=== PATIENT | female | born 1960 | race Caucasian/White ===

== ENCOUNTER 2020-08-30 11:12 | Emergency (ER) | payer OTHER ==
[2020-08-30] MEDS ORDERED: Sodium Chloride 0.9% 1000 ML 1,000 ML IV STA (11:36)
[2020-08-30] MEDS ORDERED: Sodium Chloride 0.9% 1000 ML 1,000 ML ONE (11:40)
--- NOTE | 2020-08-30 11:50 | ERPHSYRPT ---
- History of Present Illness Time Seen by Provider: 08/30/20 11:30 Exam Limitations: no limitations Patient Subjective Stated Complaint: Pt states "I went to [facility] yesterday and I was told I had salmonilla. My is at [facility] with the same thing." Triage Nursing Assessment: Pt presented alert and oriented X 3, skin pwd Pt ambulates with an upright steady gait, able to sepak in clear full sentences pt in no apparent respiratory distress. Physician History: Patient is a 60-year-old female presents to our ED as a referral from [facility]. Patient was at [facility] yesterday. She was evaluated for nausea vomiting and diarrhea at that time. A stool sample was obtained. The results yielded Salmonella. Patient was notified of the findings today. She was then advised to come to the ER for treatment of possible dehydration as she explained to the [facility] that she was still having nausea vomiting and diarrhea. Patient stated her mouth was dry. Patient stated she felt weak. Patient's weakness is generalized. No focal or lateralizing symptoms. No numbness or tingling. Patient's has similar symptoms. believes that they may have contracted Salmonella at [facility]. Patient denies abdominal pain. No c hest pain or shortness of breath. Vomiting and diarrhea has not been observed in our ED at this time. Timing/Duration: day(s) (Patient has had nausea vomiting and diarrhea for 5 days) Severity: moderate Modifying Factors: Improves With: nothing Associated Symptoms: nausea, vomiting, No abdominal pain, No shortness of breath, No diaphoresis, No cough, No chills, No chest pain, No fever, No headac hes, No loss of appetite, No malaise, No rash, No syncope, No seizure Allergies/Adverse Reactions: No Known Drug Allergies Allergy (Verified 03/15/16 06:39) Home Medications: Eqbca-3-Kkucfmhkkh Inhibitor [Prolastin C] 1,000 mg IV WEEKLY 08/30/20 [History] Hx Tetanus, Diphtheria Vaccination/Date Given: No Hx Influenza Vaccination/Date Given: Yes Hx Pneumococcal Vaccination/Date Given: Yes Immunizations Up to Date: Yes Travel Risk - International Travel Have you traveled outside of the country in past 3 weeks: No - Coronavirus Screening Are you exhibiting any of the following symptoms?: No Close contact with a COVID-19 positive Pt in past 14-21 Days: No - Vaccine Status Have you recieved a Covid-19 vaccination: Yes [employer]: [employer] - Vaccination Dates Date of 2cond Vaccination (if applicable): 07/2020 - Review of Systems Constitutional: No Symptoms, No Fever, No Chills Eyes: No Symptoms Ears, Nose, & Throat: No Symptoms Respiratory: No Symptoms, No Cough, No Dyspnea Cardiac: No Symptoms, No Chest Pain, No Edema, No Syncope Abdominal/Gastrointestinal: No Symptoms, No Abdominal Pain, No Nausea, No Vomiting, No Diarrhea Genitourinary Symptoms: No Symptoms, No Dysuria Musculoskeletal: No Symptoms, No Back Pain, No Neck Pain Skin: No Symptoms, No Rash Neurological: No Symptoms, No Dizziness, No Focal Weakness, No Sensory Changes Psychological: No Symptoms Endocrine: No Symptoms Hematologic/Lymphatic: No Symptoms All Other Systems: Reviewed and Negative - Past Medical History Pertinent Past Medical History: Yes Musculoskeletal History: Arthritis Other Medical History: alpha 1 - Past Surgical History Past Surgical History: Yes Musculoskeletal: Orthopedic Surgery Other Surgical History: right knee surgery - Social History Smoking Status: Former smoker Exposure to second hand smoke: No Drug Use: none Patient Lives Alone: No - Female History Hx Now: No - Nursing Vital Signs Nursing Vital Signs: Initial Vital Signs Temperature 98.4 F 08/30/20 11:23 Pulse Rate 84 08/30/20 11:23 Respiratory Rate 20 08/30/20 11:23 Blood Pressure 129/84 08/30/20 11:23 O2 Sat by Pulse Oximetry 92 L 08/30/20 11:23 Pain Scale Pain Intensity 1 - Physical Exam General Appearance: no apparent distress, alert Eye Exam: PERRL/EOMI, eyes nml inspection Ears, Nose, Throat Exam: normal ENT inspection, TMs normal, pharynx normal, moist mucous membranes Neck Exam: normal inspection, non-tender, supple, full range of motion Respiratory Exam: normal breath sounds, lungs clear, No respiratory distress Cardiovascular Exam: regular rate/rhythm, normal heart sounds, normal peripheral pulses Gastrointestinal/Abdomen Exam: soft, normal bowel sounds, No tenderness, No mass Back Exam: normal inspection, normal range of motion, No CVA tenderness, No vertebral tenderness Extremity Exam: normal inspection, normal range of motion, pelvis stable Neurologic Exam: alert, oriented x 3, cooperative, normal mood/affect, nml cerebellar function, nml station & gait, sensation nml, No motor deficits Skin Exam: normal color, warm, dry, No rash Lymphatic Exam: No adenopathy SpO2 Interpretation: normal SpO2: 92 O2 Delivery: Room Air - Course Nursing assessment & vital signs reviewed: Yes Ordered Tests: Active Orders 24 hr Category Date Time Status IV Insertion STAT Care 08/30/20 11:36 Active CBC W DIFF Stat Lab 08/30/20 11:34 Completed CMP Stat Lab 08/30/20 11:34 Completed CULTURE,URINE Stat Lab 08/30/20 11:36 Received LIPASE Stat Lab 08/30/20 11:34 Completed MAG [MAGNESIUM] Stat Lab 08/30/20 11:34 Completed UA W/RFX UR CULTURE Stat Lab 08/30/20 11:36 Completed Medication Summary Generic Name Dose Route Start Last Admin Trade Name Freq PRN Reason Stop Dose Admin Ceftriaxone Sodium/Dextrose 1 g in 50 mls @ 100 mls/hr 08/31/20 10:00 05/09/25 14:06 Rocephin 1 Gm-D5w 50 Ml Bag IV 09/03/20 09:59 100 ml/hr Q24H10 VAL 100 mls/hr Administration Discontinued Medications Generic Name Dose Route Start Last Admin Trade Name Freq PRN Reason Stop Dose Admin Sodium Chloride 1,000 mls @ 999 mls/hr 08/30/20 11:36 08/30/20 12:58 Sodium Chloride 0.9% 1000 Ml IV 08/30/20 12:36 Infused .Q1H1M STA Infusion Sodium Chloride Confirm 08/30/20 11:40 Sodium Chloride 0.9% 1000 Ml Administered 08/30/20 11:41 Dose 1,000 mls @ ud .ROUTE .STK-MED ONE Ceftriaxone Sodium/Dextrose Confirm 08/30/20 13:59 Rocephin 1 Gm-D5w 50 Ml Bag Administered 08/30/20 14:00 Dose 1 g in 50 mls @ ud IV .STK-MED ONE Ceftriaxone Sodium/Dextrose Confirm 08/30/20 14:04 Rocephin 1 Gm-D5w 50 Ml Bag Administered 08/30/20 14:05 Dose 1 g in 50 mls @ ud IV .STK-MED ONE Potassium Chloride 40 meq 08/30/20 13:33 08/30/20 14:01 Klor Con 10 Meq PO 08/30/20 13:34 40 meq STAT ONE Administration Potassium Chloride Confirm 08/30/20 13:59 Klor Con 10 Meq Administered 08/30/20 14:00 Dose 40 meq PO .STK-MED ONE Potassium Chloride Confirm 08/30/20 14:02 Klor Con 10 Meq Administered 08/30/20 14:03 Dose 40 meq PO .STK-MED ONE Lab/Rad Data: Laboratory Result Diagrams 08/30/20 11:34 08/30/20 11:34 Laboratory Results 08/30/20 08/30/20 08/30/20 Range/Units 11:36 11:34 11:34 WBC (4.0-10.5) K/mm3 RBC (4.1-5.4) M/mm3 Hgb (12.0-16.0) gm/dl Hct (35-47) % MCV (78-100) fl MCH (26-32) pg MCHC (32-36) g/dl RDW (11.5-14.0) % Plt Count (150-450) K/mm3 MPV (7.5-11.0) fl Gran % (36.0-66.0) % Eos # (Auto) (0-0.5) Absolute Lymphs (auto) (1.0-4.6) Absolute Monos (auto) (0.0-1.3) Lymphocytes % (24.0-44.0) % Monocytes % (0.0-12.0) % Eosinophils % (0.00-5.0) % Basophils % (0.0-0.4) % Absolute Granulocytes (1.4-6.9) Basophils # (0-0.4) Sodium 136 L (137-145) mmol/L Potassium 2.9 L* (3.5-5.1) mmol/L Chloride 97 L (98-107) mmol/L Carbon Dioxide 32 H (22-30) mmol/L Anion Gap 9.5 (5-15) MEQ/L BUN 11 (7-17) mg/dL Creatinine 0.55 (0.52-1.04) mg/dL Estimated GFR > 60.0 ML/MIN Glucose 92 (74-106) mg/dL Calcium 9.0 (8.4-10.2) mg/dL Magnesium 2.2 (1.6-2.3) mg/dL Total Bilirubin 0.40 (0.2-1.3) mg/dL AST 26 (14-36) U/L ALT 31 (0-35) U/L Alkaline Phosphatase 91 (38-126) U/L Serum Total Protein 6.7 (6.3-8.2) g/dL Albumin 4.0 (3.5-5.0) g/dL Lipase 126 (23-300) U/L Urine Color CARRI (YELLOW) Urine Appearance CLOUDY (CLEAR) Urine pH 6.0 (5-6) Ur Specific Keene 1.020 (1.005-1.025) Urine Protein 100 (Negative) Urine Ketones TRACE (NEGATIVE) Urine Blood MODERATE (0-5) Jimmy/ul Urine Nitrite NEGATIVE (NEGATIVE) Urine Bilirubin NEGATIVE (NEGATIVE) Urine Urobilinogen NEGATIVE (0-1) mg/dL Ur Leukocyte Esterase MODERATE (NEGATIVE) Urine WBC (Auto) >100 (0-5) /HPF Urine RBC (Auto) >101 (0-2) /HPF U Epithel Cells (Auto) RARE (FEW) /HPF Urine Bacteria (Auto) MODERATE (NEGATIVE) /HPF U Non-Squamous Epi Cells RARE (FEW) /HPF Urine Mucus (Auto) SLIGHT (NEGATIVE) /HPF Urine Culture Reflexed YES (NO) Urine Glucose NEGATIVE (NEGATIVE) mg/dL 08/30/20 Range/Units 11:34 WBC 5.1 (4.0-10.5) K/mm3 RBC 3.81 L (4.1-5.4) M/mm3 Hgb 10.7 L (12.0-16.0) gm/dl Hct 35.3 (35-47) % MCV 92.7 (78-100) fl MCH 28.1 (26-32) pg MCHC 30.3 L (32-36) g/dl RDW 14.9 H (11.5-14.0) % Plt Count 167 (150-450) K/mm3 MPV 10.6 (7.5-11.0) fl Gran % 74.1 H (36.0-66.0) % Eos # (Auto) 0.02 (0-0.5) Absolute Lymphs (auto) 0.55 L (1.0-4.6) Absolute Monos (auto) 0.73 (0.0-1.3) Lymphocytes % 10.7 L (24.0-44.0) % Monocytes % 14.2 H (0.0-12.0) % Eosinophils % 0.4 (0.00-5.0) % Basophils % 0.6 (0.0-0.4) % Absolute Granulocytes 3.80 (1.4-6.9) Basophils # 0.03 (0-0.4) Sodium (137-145) mmol/L Potassium (3.5-5.1) mmol/L Chloride (98-107) mmol/L Carbon Dioxide (22-30) mmol/L Anion Gap (5-15) MEQ/L BUN (7-17) mg/dL Creatinine (0.52-1.04) mg/dL Estimated GFR ML/MIN Glucose (74-106) mg/dL Calcium (8.4-10.2) mg/dL Magnesium (1.6-2.3) mg/dL Total Bilirubin (0.2-1.3) mg/dL AST (14-36) U/L ALT (0-35) U/L Alkaline Phosphatase (38-126) U/L Serum Total Protein (6.3-8.2) g/dL Albumin (3.5-5.0) g/dL Lipase (23-300) U/L Urine Color (YELLOW) Urine Appearance (CLEAR) Urine pH (5-6) Ur Specific Keene (1.005-1.025) Urine Protein (Negative) Urine Ketones (NEGATIVE) Urine Blood (0-5) Jimmy/ul Urine Nitrite (NEGATIVE) Urine Bilirubin (NEGATIVE) Urine Urobilinogen (0-1) mg/dL Ur Leukocyte Esterase (NEGATIVE) Urine WBC (Auto) (0-5) /HPF Urine RBC (Auto) (0-2) /HPF U Epithel Cells (Auto) (FEW) /HPF Urine Bacteria (Auto) (NEGATIVE) /HPF U Non-Squamous Epi Cells (FEW) /HPF Urine Mucus (Auto) (NEGATIVE) /HPF Urine Culture Reflexed (NO) Urine Glucose (NEGATIVE) mg/dL - Progress Progress: improved Progress Note: Patient reassessed. She feels much better. Patient states she is ready for discharge. Patient no longer feels weak. Hypokalemia treated with oral dose of potassium. Patient does have an appetite now. No vomiting in our ED. Patient does have a urinary tract infection. She received a dose of Rocephin. We confirmed that patient does have Salmonella in her stool. We will discharge patient home with a prescription for Zofran and Cipro 500 mg p.o. twice daily for 7 days. Patient agrees to follow-up with her primary care doctor within 48 hours for reevaluation. She voices no other complaints at this time. Portions of this note were created with voice recognition technology. There may be grammatical, spelling, punctuation or sound alike errors 08/30/20 15:18 Counseled pt/family regarding: lab results, diagnosis, need for follow-up - Departure Departure Disposition: Home Clinical Impression: Anemia, Hypokalemia, UTI (urinary tract infection) Condition: Stable Critical Care Time: No Referrals: WILLY MCNALLY [Primary Care Provider] - Prescriptions: Ciprofloxacin [Cipro 500 MG] 500 mg PO BID 7 Days #14 tablet Ondansetron HCl [Zofran] 4 mg PO TID PRN #10 tablet PRN Reason: Nausea/Vomiting
[2020-08-30 11:53] LABS: BASOPHIL % 0.6 % (0.0-0.4); Basophil (Absolute #) 0.03 (0-0.4); Eosinophil % 0.4 % (0.00-5.0); Eosinophil (Absolute #) 0.02 (0-0.5); Hematocrit 35.3 % (35-47); Hemoglobin 10.7 gm/dl (12.0-16.0); Lymphocyte (Absolute #) 0.55 (1.0-4.6); Lymphocytes % 10.7 % (24.0-44.0); Mean Cell Volume 92.7 fl (78-100); Mean Corpuscular Hemoglobin 28.1 pg (26-32); Mean Corpuscular Hgb Concent. 30.3 g/dl (32-36); Mean Platelet Volume 10.6 fl (7.5-11.0); Monocyte (Absolute #) 0.73 (0.0-1.3); Monocytes % 14.2 % (0.0-12.0); Neutrophil % 74.1 % (36.0-66.0); Platelet Count 167 K/mm3 (150-450); Red Blood Count 3.81 M/mm3 (4.1-5.4); Red Cell Distribution Width 14.9 % (11.5-14.0); White Blood Count 5.1 K/mm3 (4.0-10.5)
[2020-08-30 12:03] LABS: ALKALINE PHOSPHATASE 91 U/L (38-126); ANION GAP 9.5 MEQ/L (5-15); BLOOD UREA NITROGEN 11 mg/dL (7-17); CHLORIDE 97 mmol/L (98-107); Carbon Dioxide 32 mmol/L (22-30); Creatinine 1 0.55 mg/dL (0.52-1.04); EST GLOMERULAR FILTRATION RATE > 60.0 ML/MIN; Glucose 92 mg/dL (74-106); LIPASE 126 U/L (23-300); SGOT/AST 26 U/L (14-36); SGPT/ALT 31 U/L (0-35); SODIUM 136 mmol/L (137-145); Total Protein 6.7 g/dL (6.3-8.2)
[2020-08-30 12:06] LABS: Appearance CLOUDY (CLEAR); Bacteria MODERATE /HPF (NEGATIVE); Bilirubin NEGATIVE (NEGATIVE); Blood MODERATE Ery/ul (0-5); Epithelial Cells RARE /HPF (FEW); Glucose NEGATIVE (NEGATIVE); Ketones TRACE (NEGATIVE); Leukocyte Esterase MODERATE (NEGATIVE); Mucus SLIGHT /HPF (NEGATIVE); Nitrite NEGATIVE (NEGATIVE); Non-Squamous Epithelial Cells RARE /HPF (FEW); Protein,Urine Dip 100 (Negative); Urobilinogen NEGATIVE mg/dL (0-1); WBC >100 /HPF (0-5)
[2020-08-30 12:07] LABS: RBC >101 /HPF (0-2)
[2020-08-30 12:09] LABS: Potassium 2.9 mmol/L (3.5-5.1)
[2020-08-30] MEDS ORDERED: Klor Con 10 MEQ PO ONE ×3 (13:33→14:02)
[2020-08-30] MEDS ORDERED: ROCEPHIN 1 Gm-D5w 50 ml Bag** 0 G/0 ML IVPB IV ONE (13:59)
[2020-08-30] MEDS: ROCEPHIN 1 Gm-D5w 50 ml Bag** 1 G/50 ML IVPB IV SCH ×2 (14:03→14:06)
[2020-08-30] MEDS ORDERED: ROCEPHIN 1 Gm-D5w 50 ml Bag** 1 G/50 ML IVPB IV ONE (14:04)
[2020-08-30 14:09] VITALS: BP 126/71
[2020-08-30 15:08] VITALS: PULSE 81
[2020-08-30 15:20] VITALS: O2SAT 92
[2020-08-30 15:54] LABS: Slide Review 1 YES
== END 2020-08-30 15:34 | disposition home or self-care (01) ==
LOC: ED 11:12
DX: D64.9 Anemia, unspecified (principal); P74.32 Hypokalemia of newborn; N39.0 Urinary tract infection, site not specified
CPT/HCPCS: 36415; 80053; 81001; 83690; 83735; 85025; 87077; 87086; 87186; 96360; 96365; 99284; J0696; J1642; A9270-GY

== ENCOUNTER 2021-02-20 17:47 | Emergency (ER) | payer MEDICARE, MEDICAID ==
--- NOTE | 2021-02-20 17:53 | ERPHSYRPT ---
- History of Present Illness Time Seen by Provider: 02/20/21 17:53 Source: patient Exam Limitations: no limitations Physician History: This is a 60-year-old white female patient of Dr. Snowden who presents with a 4- day history of cough and shortness of breath. She has had aphasia COVID-19 vaccine back in June and the second dose in July. 4 days ago, the p atient started having shortness of breath and cough as well as headache and myalgias arthralgias. She denies nausea vomiting or diarrhea. She wears oxygen at night and presents to the emergency department today with an 88% room air oxygenation level. When we put her on her usual oxygen level via nasal cannula her oxygenation level increased to 97%. She feels short of breath. She denies chest pain. She denies abdominal pain. She has no known exposure to anyone with similar symptoms. Timing/Duration: day(s) (4) Severity of Dyspnea-Max: mild (To moderate) Severity of Dyspnea-Current: mild (To moderate) Possible Cause: no prior episodes Modifying Factors: Improves With: coughing, exertion (Worsens) Associated Symptoms: cough, weakness, No chest pain/discomfort Allergies/Adverse Reactions: No Known Drug Allergies Allergy (Verified 03/15/16 06:39) Home Medications: Lybjr-3-Kvmqypldog Inhibitor [Prolastin C] 1,000 mg IV WEEKLY 08/30/20 [History] Fluticasone/Umeclidin/Vilanter [Trelegy Ellipta 100-62.5-25] 1 unit IH DAILY 02/20/21 [History] Methotrexate [Xatmep] 2.5 mg PO DAILY 02/20/21 [History] Hx Tetanus, Diphtheria Vaccination/Date Given: No Hx Influenza Vaccination/Date Given: Yes Hx Pneumococcal Vaccination/Date Given: Yes Travel Risk - International Travel Have you traveled outside of the country in past 3 weeks: No - Coronavirus Screening Are you exhibiting any of the following symptoms?: Yes Symptoms: Cough: New Onset, Shortness of Breath, Headaches/Body Aches/Fatigue Close contact with a COVID-19 positive Pt in past 14-21 Days: No - Vaccine Status Have you recieved a Covid-19 vaccination: Yes Bank [employer]: [employer] - Vaccination Dates Date of 2cond Vaccination (if applicable): 07/2020 - Review of Systems Constitutional: Weakness Eyes: No Symptoms Ears, Nose, & Throat: No Symptoms Respiratory: Cough, Dyspnea Cardiac: No Symptoms Abdominal/Gastrointestinal: No Symptoms Genitourinary Symptoms: No Symptoms Musculoskeletal: Arthralgias, Myalgias Neurological: No Symptoms Psychological: No Symptoms Endocrine: No Symptoms Hematologic/Lymphatic: No Symptoms Immunological/Allergic: No Symptoms All Other Systems: Reviewed and Negative - Past Medical History Pertinent Past Medical History: Yes Musculoskeletal History: Arthritis Other Medical History: alpha 1 - Past Surgical History Past Surgical History: Yes Musculoskeletal: Orthopedic Surgery Other Surgical History: right knee surgery - Social History Smoking Status: Former smoker Exposure to second hand smoke: No Drug Use: none Patient Lives Alone: No - Nursing Vital Signs Nursing Vital Signs: Initial Vital Signs Temperature 100.9 F 02/20/21 17:48 Pulse Rate 102 H 02/20/21 17:48 Respiratory Rate 26 H 02/20/21 17:48 Blood Pressure 169/79 02/20/21 17:48 O2 Sat by Pulse Oximetry 88 L 02/20/21 17:48 Pain Scale Pain Intensity 4 - Physical Exam General Appearance: no apparent distress, alert, anxiety Eye Exam: PERRL/EOMI, eyes nml inspection Ears, Nose, Throat Exam: hearing grossly normal, normal ENT inspection, normal pharynx Neck Exam: normal inspection, non-tender, supple, full range of motion Respiratory Exam: normal breath sounds, lungs clear, airway intact, No chest tenderness, No respiratory distress Cardiovascular/Chest Exam: normal heart sounds, regular rate/rhythm, murmur Abdominal/Gastrointestinal Exam: soft, normal bowel sounds, tenderness Rectal Exam: not done Extremity Exam: non-tender, normal range of motion, normal inspection Neurologic Exam: alert, oriented x 3, cooperative, press puller II-XII nml as tested, normal mood/affect, nml cerebellar function, nml station & gait, sensation nml Skin Exam: normal color, warm, dry Lymphatic Exam: No adenopathy SpO2 Interpretation: hypoxic O2 Delivery: Nasal Cannula - Course Nursing assessment & vital signs reviewed: Yes Ordered Tests: Active Orders 24 hr Category Date Time Status EKG-ER Only STAT Care 02/20/21 18:11 Active IV Insertion STAT Care 02/20/21 18:11 Active Pulse Oximetry (ED) STAT Care 02/20/21 18:11 Active CHEST 1 VIEW (PORTABLE) Stat Exams 02/20/21 18:12 Taken CHEST WITH CONTRAST [CT] Stat Exams 02/20/21 19:37 Taken BLOOD CULTURE Stat Lab 02/20/21 18:33 Received CBC W DIFF Stat Lab 02/20/21 17:56 Completed CMP Stat Lab 02/20/21 17:56 Completed D-DIMER QUANTITATIVE Stat Lab 02/20/21 17:56 Completed INFLUENZA A+B ESEQUIEL Stat Lab 02/20/21 18:33 Completed Lactic Acid Stat Lab 02/20/21 18:36 Completed Stephenson Screen Stat Lab 02/20/21 17:56 Completed NT PRO BNP Stat Lab 02/20/21 17:56 Completed TROPONIN Q3H Lab 02/20/21 17:35 Completed TROPONIN Q3H Lab 02/20/21 21:15 Ordered TROPONIN Q3H Lab 02/21/21 00:15 Ordered TROPONIN Q3H Lab 02/21/21 03:15 Ordered TROPONIN Q3H Lab 02/21/21 06:15 Ordered UA W/RFX UR CULTURE Stat Lab 02/20/21 18:11 Ordered Medication Summary Generic Name Dose Route Start Last Admin Trade Name Freq PRN Reason Stop Dose Admin Sodium Chloride 1,000 mls @ 100 mls/hr 02/20/21 18:15 02/20/21 18:19 Sodium Chloride 0.9% 1000 Ml IV 03/22/21 18:14 100 mls/hr .Q10H VAL Administration Lab/Rad Data: Laboratory Result Diagrams 02/20/21 17:56 02/20/21 17:56 Laboratory Results 02/20/21 02/20/21 02/20/21 Range/Units 18:36 18:33 18:33 WBC (4.0-10.5) K/mm3 RBC (4.1-5.4) M/mm3 Hgb (12.0-16.0) gm/dl Hct (35-47) % MCV (78-100) fl MCH (26-32) pg MCHC (32-36) g/dl RDW (11.5-14.0) % Plt Count (150-450) K/mm3 MPV (7.5-11.0) fl Gran % (36.0-66.0) % Eos # (Auto) (0-0.5) Absolute Lymphs (auto) (1.0-4.6) Absolute Monos (auto) (0.0-1.3) Lymphocytes % (24.0-44.0) % Monocytes % (0.0-12.0) % Eosinophils % (0.00-5.0) % Basophils % (0.0-0.4) % Absolute Granulocytes (1.4-6.9) Basophils # (0-0.4) D-Dimer (215-500) ng/mL Sodium (137-145) mmol/L Potassium (3.5-5.1) mmol/L Chloride (98-107) mmol/L Carbon Dioxide (22-30) mmol/L Anion Gap (5-15) MEQ/L BUN (7-17) mg/dL Creatinine (0.52-1.04) mg/dL Estimated GFR ML/MIN Glucose (74-106) mg/dL Lactic Acid 0.6 (0.4-2.0) Calcium (8.4-10.2) mg/dL Total Bilirubin (0.2-1.3) mg/dL AST (14-36) U/L ALT (0-35) U/L Alkaline Phosphatase (38-126) U/L Troponin I (0.000-0.034) ng/mL NT-Pro-B Natriuret Pep (0-900) pg/mL Serum Total Protein (6.3-8.2) g/dL Albumin (3.5-5.0) g/dL Monoscreen (Negative) Influenza Type A Ag NEGATIVE (NEGATIVE) Influenza Type B Ag NEGATIVE (NEGATIVE) Group A Strep Antibody NOT DETECTED (NEGATIVE) 02/20/21 02/20/21 02/20/21 Range/Units 17:56 17:56 17:56 WBC (4.0-10.5) K/mm3 RBC (4.1-5.4) M/mm3 Hgb (12.0-16.0) gm/dl Hct (35-47) % MCV (78-100) fl MCH (26-32) pg MCHC (32-36) g/dl RDW (11.5-14.0) % Plt Count (150-450) K/mm3 MPV (7.5-11.0) fl Gran % (36.0-66.0) % Eos # (Auto) (0-0.5) Absolute Lymphs (auto) (1.0-4.6) Absolute Monos (auto) (0.0-1.3) Lymphocytes % (24.0-44.0) % Monocytes % (0.0-12.0) % Eosinophils % (0.00-5.0) % Basophils % (0.0-0.4) % Absolute Granulocytes (1.4-6.9) Basophils # (0-0.4) D-Dimer 969 H* (215-500) ng/mL Sodium 139 (137-145) mmol/L Potassium 3.5 (3.5-5.1) mmol/L Chloride 105 (98-107) mmol/L Carbon Dioxide 26 (22-30) mmol/L Anion Gap 11.7 (5-15) MEQ/L BUN 14 (7-17) mg/dL Creatinine 0.71 (0.52-1.04) mg/dL Estimated GFR > 60.0 ML/MIN Glucose 113 H (74-106) mg/dL Lactic Acid (0.4-2.0) Calcium 8.6 (8.4-10.2) mg/dL Total Bilirubin 0.40 (0.2-1.3) mg/dL AST 25 (14-36) U/L ALT 33 (0-35) U/L Alkaline Phosphatase 119 (38-126) U/L Troponin I (0.000-0.034) ng/mL NT-Pro-B Natriuret Pep 84.3 (0-900) pg/mL Serum Total Protein 6.9 (6.3-8.2) g/dL Albumin 4.0 (3.5-5.0) g/dL Monoscreen NEGATIVE (Negative) Influenza Type A Ag (NEGATIVE) Influenza Type B Ag (NEGATIVE) Group A Strep Antibody (NEGATIVE) 02/20/21 02/20/21 Range/Units 17:56 17:35 WBC 8.0 (4.0-10.5) K/mm3 RBC 3.94 L (4.1-5.4) M/mm3 Hgb 11.1 L (12.0-16.0) gm/dl Hct 37.1 (35-47) % MCV 94.2 (78-100) fl MCH 28.2 (26-32) pg MCHC 29.9 L (32-36) g/dl RDW 13.8 (11.5-14.0) % Plt Count 124 L (150-450) K/mm3 MPV 12.0 H (7.5-11.0) fl Gran % 85.2 H (36.0-66.0) % Eos # (Auto) 0.01 (0-0.5) Absolute Lymphs (auto) 0.50 L (1.0-4.6) Absolute Monos (auto) 0.67 (0.0-1.3) Lymphocytes % 6.2 L (24.0-44.0) % Monocytes % 8.4 (0.0-12.0) % Eosinophils % 0.1 (0.00-5.0) % Basophils % 0.1 (0.0-0.4) % Absolute Granulocytes 6.82 (1.4-6.9) Basophils # 0.01 (0-0.4) D-Dimer (215-500) ng/mL Sodium (137-145) mmol/L Potassium (3.5-5.1) mmol/L Chloride (98-107) mmol/L Carbon Dioxide (22-30) mmol/L Anion Gap (5-15) MEQ/L BUN (7-17) mg/dL Creatinine (0.52-1.04) mg/dL Estimated GFR ML/MIN Glucose (74-106) mg/dL Lactic Acid (0.4-2.0) Calcium (8.4-10.2) mg/dL Total Bilirubin (0.2-1.3) mg/dL AST (14-36) U/L ALT (0-35) U/L Alkaline Phosphatase (38-126) U/L Troponin I < 0.012 (0.000-0.034) ng/mL NT-Pro-B Natriuret Pep (0-900) pg/mL Serum Total Protein (6.3-8.2) g/dL Albumin (3.5-5.0) g/dL Monoscreen (Negative) Influenza Type A Ag (NEGATIVE) Influenza Type B Ag (NEGATIVE) Group A Strep Antibody (NEGATIVE) - Progress Progress: improved, re-examined Air Movement: good Progress Note: 02/20/21 20:48 CAT scan of the chest with contrast shows no pulmonary embolus. There is bilateral mild patchy groundglass opacities present. There is no obvious consolidation. 02/20/21 20:51 Medical decision making: This patient is resting comfortably at this time. In fact she is sleeping with a oxygenation level of 95 to 96% on 2 L nasal cannula. She wears this oxygen at night each night. Her white count is normal. Her CT of the chest shows no pulmonary embolus and there is no evidence of sarah beth pneumonia. Her strep test, mono test, influenza a and B tests are all negative. Her lactic acid level is normal. She is a candidate to be discharged to home. Her Covid test is pending. We will send her home with a prescription of prednisone and hydrocodone cough syrup. Blood Culture(s) Obtained: Yes Antibiotics given: No Counseled pt/family regarding: lab results, diagnosis, need for follow-up, rad results - Departure Departure Disposition: Home Clinical Impression: Viral respiratory illness Condition: Stable Critical Care Time: No Referrals: WILLY SNOWDEN [Primary Care Provider] - Follow up/PCP as directed Additional Instructions: Drink plenty fluids. Wear oxygen full-time over the next few days. Quarantine yourself until you receive the COVID-19 test results. Take your medication as prescribed. Return to the emergency department if your symptoms worsen Prescriptions: Hydrocodone/Acetaminophen [Hydrocodone-Acetamn 7.5-325/15] 10 ml PO Q8H PRN PRN #120 ml MDD 30ml PRN Reason: Cough Prednisone 10 mg [Deltasone 10 mg] 10 mg PO TID #12 tablet
[2021-02-20] MEDS ORDERED: Sodium Chloride 0.9% 1000 ML 1,000 ML IV SCH (18:15)
[2021-02-20] MEDS ORDERED: Sodium Chloride 0.9% 1000 ML 1,000 ML ONE (18:17)
[2021-02-20 18:26] LABS: Absolute Neutrophil Ct (ANC) 6.82 (1.4-6.9); BASOPHIL % 0.1 % (0.0-0.4); Basophil (Absolute #) 0.01 (0-0.4); Eosinophil % 0.1 % (0.00-5.0); Eosinophil (Absolute #) 0.01 (0-0.5); Hematocrit 37.1 % (35-47); Hemoglobin 11.1 gm/dl (12.0-16.0); Lymphocytes % 6.2 % (24.0-44.0); Mean Cell Volume 94.2 fl (78-100); Mean Corpuscular Hemoglobin 28.2 pg (26-32); Mean Corpuscular Hgb Concent. 29.9 g/dl (32-36); Monocyte (Absolute #) 0.67 (0.0-1.3); Monocytes % 8.4 % (0.0-12.0); Neutrophil % 85.2 % (36.0-66.0); Platelet Count 124 K/mm3 (150-450); Red Blood Count 3.94 M/mm3 (4.1-5.4); Red Cell Distribution Width 13.8 % (11.5-14.0)
[2021-02-20 18:46] LABS: ALKALINE PHOSPHATASE 119 U/L (38-126); ANION GAP 11.7 MEQ/L (5-15); BLOOD UREA NITROGEN 14 mg/dL (7-17); CHLORIDE 105 mmol/L (98-107); Calcium 8.6 mg/dL (8.4-10.2); Carbon Dioxide 26 mmol/L (22-30); Creatinine 1 0.71 mg/dL (0.52-1.04); EST GLOMERULAR FILTRATION RATE > 60.0 ML/MIN; Glucose 113 mg/dL (74-106); NT PRO BNP 84.3 pg/mL (0-900); Potassium 3.5 mmol/L (3.5-5.1); SGOT/AST 25 U/L (14-36); SGPT/ALT 33 U/L (0-35); SODIUM 139 mmol/L (137-145); Total Protein 6.9 g/dL (6.3-8.2)
[2021-02-20 19:11] LABS: INFLUENZA A NEGATIVE (NEGATIVE); INFLUENZA B NEGATIVE (NEGATIVE)
--- NOTE | 2021-02-21 08:39 | XRAY ---
Indication: Cough, short of breath, weakness, and bodyaches. Comparison: September 16, 2016. Portable chest demonstrates new diffuse bilateral interstitial opacities without consolidation/large effusion. Heart not enlarged with new left Port-A-Cath. Bony thorax intact.
--- NOTE | 2021-02-21 08:42 | XRAY ---
Indication: Cough and short of breath. Elevated d-dimer. Suspect Covid 19. Multiple contiguous axial images obtained through the chest using 80 cc Isovue 370 contrast and PE protocol. Comparison: None There is good opacification of the pulmonary arteries to include the lobar and segmental branches. Images slightly degraded by respiration artifact throughout. No pulmonary embolus. Heart is not enlarged with a left-sided Port-A-Cath. Aorta minimally arteriosclerotic without aneurysm/dissection. Small nonpathologic mediastinal lymph nodes and tiny subcarinal calcified node. Lungs demonstrates diffuse pulmonary emphysema and tiny right lower lobe calcified granuloma. Also multifocal small patchy consolidating/nonconsolidating airspace disease. No effusion. Bony thorax intact with minimal degenerative changes throughout the spine. Limited upper abdomen demonstrates 13.6 cm splenomegaly, mild fatty liver, and incompletely visualized 3 cm left mid renal cyst. Impression: 1. Respiration artifact. 2. Negative pulmonary embolus. 3. Multifocal bilateral patchy consolidating/nonconsolidating airspace disease. 4. Incidental pulmonary emphysema, fatty liver, splenomegaly, left renal cyst, and old granulomatous disease.
== END 2021-02-20 21:38 | disposition home or self-care (01) ==
LOC: ED 17:47
DX: J98.8 Other specified respiratory disorders (principal); B34.9 Viral infection, unspecified; R05.9 Cough, unspecified; R51.9 Headache, unspecified; M79.10 Myalgia, unspecified site; M25.50 Pain in unspecified joint; Z99.81 Dependence on supplemental oxygen
CPT/HCPCS: 36000; 36415; 71045; 71260; 80053; 83605; 83880; 84484; 85025; 85379; 86308; 87040; 87400; 87651; 93005; 94760; 99284; J1642

== ENCOUNTER 2021-05-01 10:58 | Emergency (ER) | payer MEDICARE, MEDICAID ==
[2021-05-01 11:08] VITALS: BP 134/96; PULSE 62; O2SAT 93
--- NOTE | 2021-05-01 11:13 | ERPHSYRPT ---
- History of Present Illness Time Seen by Provider: 05/01/21 11:13 Source: patient Exam Limitations: no limitations Patient Subjective Stated Complaint: foreign body-end of q tip in right ear Triage Nursing Assessment: Patient ambulated back to ED and transferred self to bed. Patient A+O x3. Patient's skin pink, warm and dry. Patient complains of foreign body in right ear. Patient states last week the tip of a q tip got stuck in right ear. Patient unable to get out. Patient complains of right ear pain 07/15. Physician History: This is a 61-year-old white female who presents with concern of a foreign body in her right ear. She has decreased hearing and thinks that she has a tip of a Q-tip in the right ear. She said it has been there approximately a week and a half. She has been trying to remove it herself. Patient arrives to emergency department, the emergency room nurse evaluated and could see foreign body and a lot of earwax present. Timing/Duration: weeks (1.5) Severity: mild ENT Location: ear (R) Prearrival Treatment: no prearrival treatment Modifying Factors: Improves With: nothing Associated Symptoms: ear pain (R) Allergies/Adverse Reactions: No Known Drug Allergies Allergy (Verified 05/01/21 11:02) Home Medications: Zhzig-7-Vbyoyjozdf Inhibitor [Prolastin C] 1,000 mg IV WEEKLY 08/30/20 [History] Fluticasone/Umeclidin/Vilanter [Trelegy Ellipta 100-62.5-25] 1 unit IH DAILY 02/20/21 [History] Methotrexate [Xatmep] 2.5 mg PO DAILY 02/20/21 [History] Hx Tetanus, Diphtheria Vaccination/Date Given: No Hx Influenza Vaccination/Date Given: Yes Hx Pneumococcal Vaccination/Date Given: Yes Immunizations Up to Date: Yes Travel Risk - International Travel Have you traveled outside of the country in past 3 weeks: No - Coronavirus Screening Are you exhibiting any of the following symptoms?: No - Vaccine Status Have you recieved a Covid-19 vaccination: Yes 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: [employer] - Vaccination Dates Date of 2cond Vaccination (if applicable): 07/2020 - Review of Systems Constitutional: No Symptoms Eyes: No Symptoms Ears, Nose, & Throat: Other (Right ear foreign body and decreased hearing) Respiratory: No Symptoms Cardiac: No Symptoms Abdominal/Gastrointestinal: No Symptoms Genitourinary Symptoms: No Symptoms Musculoskeletal: No Symptoms Skin: No Symptoms Neurological: No Symptoms Psychological: No Symptoms Endocrine: No Symptoms Hematologic/Lymphatic: No Symptoms Immunological/Allergic: No Symptoms All Other Systems: Reviewed and Negative - Past Medical History Pertinent Past Medical History: Yes Neurological History: No Pertinent History ENT History: Glaucoma Cardiac History: No Pertinent History Respiratory History: No Pertinent History Endocrine Medical History: No Pertinent History Musculoskeletal History: Arthritis GI Medical History: No Pertinent History History: No Pertinent History Psycho-Social History: No Pertinent History Female Reproductive Disorders: No Pertinent History Other Medical History: alpha 1 - Past Surgical History Past Surgical History: Yes Musculoskeletal: Orthopedic Surgery Other Surgical History: right knee surgery - Social History Smoking Status: Former smoker Exposure to second hand smoke: No Drug Use: none Patient Lives Alone: No - Female History Hx Now: No - Nursing Vital Signs Nursing Vital Signs: Initial Vital Signs Temperature 97.4 F 05/01/21 11:02 Pulse Rate 62 05/01/21 11:02 Respiratory Rate 18 05/01/21 11:02 Blood Pressure 134/96 05/01/21 11:02 O2 Sat by Pulse Oximetry 93 L 05/01/21 11:02 Pain Scale Pain Intensity 4 - Physical Exam General Appearance: no apparent distress, alert, anxiety, obese Eye Exam: bilateral eye: normal inspection, PERRL, EOMI Ear Exam: right ear: foreign body, TM red, other (Right ear canal with cerumen. Ear canal with erythema), left ear: canal normal, TM normal, bilateral ear: auricle normal Nasal Exam: normal inspection Throat Exam: normal Neck Exam: normal inspection, non-tender, supple, full range of motion, trachea midline Cardiovascular/Respiratory Exam: chest non-tender, normal breath sounds, regular rate/rhythm, heart sounds normal, no respiratory distress Abdominal Exam: non-tender Neurologic Exam: alert, oriented x 3, cooperative, teletype operator II-XII nml as tested, normal mood/affect, nml cerebellar function, nml station & gait, sensation nml Skin Exam: normal color, warm, dry SpO2 Interpretation: borderline oxygenation SpO2: 93 O2 Delivery: Room Air - Course Nursing assessment & vital signs reviewed: Yes - Progress Progress Note: 05/01/21 11:24 Procedure note: The nurse irrigated out the right ear and removed a large amount of cerumen and what she thought was a portion of foreign body. I evaluated the right ear canal and tympanic membrane. I saw mild erythema of the tympanic membrane and ear canal as well as some mild fibrinous exudate present. On my examination, there did not appear to be any further foreign body or cerumen present. The patient stated that she can hear really well out of that ear. - Departure Departure Disposition: Home Clinical Impression: Right ear impacted cerumen, Foreign body in right ear, initial encounter Condition: Stable Critical Care Time: No Referrals: WILLY MCNALLY [Primary Care Provider] - Follow up/PCP as directed Additional Instructions: Take your medication as prescribed. Follow-up with your primary care physician for further management. Prescriptions: Cephalexin Mh 500 mg [Keflex 500 mg] 500 mg PO TID #15 cap
== END 2021-05-01 11:35 | disposition home or self-care (01) ==
LOC: ED 10:58
DX: T16.1XXA Foreign body in right ear, initial encounter (principal); H61.21 Impacted cerumen, right ear; E88.01 Alpha-1-antitrypsin deficiency
CPT/HCPCS: 69210; 99283

== ENCOUNTER 2025-03-09 07:51 | Emergency (ER) | payer MEDICARE ==
--- NOTE | 2025-03-09 07:58 | ERPHSYRPT ---
- History of Present Illness Time Seen by Provider: 03/09/25 07:58 Historian: patient, family Exam Limitations: no limitations Physician History: This is a 65-year-old white female patient arrives per private vehicle and is a patient of Dr. Snowden with a complaint of chest pain and shortness of breath for 2 days. Patient states she had a cough and congestion. The cough has been productive with the yellowish-brown color to it. Patient has never been diagnosed with coronary artery disease. The chest pain is described as substernal, central, nonradiating achiness with coughing. Patient has no known drug allergies. Patient has a history of rheumatoid arthritis, COPD and alpha 1 trypsin deficiency. She has a portacatheter in place and receives injection of alpha-1 trypsin 1 time per week. Patient was hypoxic on arrival to the emergency department with a room air oxygen saturation of 88 to 89%. After sitting and not exerting herself, the oxygen saturation level increased to 91 to 92%. 2 L of oxygen via nasal cannula was placed on this patient. Patient does wear 2 L of oxygen via nasal cannula on a as needed basis. I reviewed/interpreted the twelve-lead EKG that was performed on 02/20/2021. The heart rate was 97 bpm. It was normal sinus rhythm. QTc was 419. This prior twelve-lead EKG was compared to the one performed today. There were no significant changes. Timing/Duration: day(s) (2) Activities at Onset: activity (Increases her shortness of breath) Quality: aching (With coughing) Location: substernal, central Chest Pain Radiation: no radiation Severity of Pain-Max: mild Severity of Pain-Current: mild Modifying Factors: Improves With: coughing (Productive cough of yellowish-brown sputum) Associated Symptoms: shortness of breath, cough, No abdominal pain, No fever Prior Chest Pain/Cardiac Workup: no prior chest pain, no prior cardiac workup Nitro Today/Relief: no nitro taken today Aspirin Treatment Today: 81 mg x 4, provided by ED Allergies/Adverse Reactions: No Known Drug Allergies Allergy (Verified 03/09/25 07:58) Home Medications: Fluticasone/Umeclidin/Vilanter [Trelegy Ellipta 100-62.5-25] 1 unit IH DAILY 02/20/21 [History] Methotrexate [Xatmep] 2.5 mg PO DAILY 02/20/21 [History] Albuterol Sulfate [Albuterol Sulfate Hfa] 8.5 gm IH BID 03/19/23 [History] Albuterol Sulfate [Proair Respiclick] 2 puff IH Q12H PRN PRN 03/19/23 [History] Bfnfi-7-Zamynzvfmb Inhibitor [Prolastin C] 1,000 mg IV WEEKLY 03/19/23 [History] Folic Acid 1 mg [Folate 1 mg] 1 mg PO DAILY 03/19/23 [History] Hx Tetanus, Diphtheria Vaccination/Date Given: No Hx Influenza Vaccination/Date Given: Yes Hx Pneumococcal Vaccination/Date Given: Yes Travel Risk - International Travel Have you traveled outside of the country in past 3 weeks: No - Emerging Infectious Disease Are you exhibiting symptoms associated with any current EIDs: No - Vaccine Status Hx Covid Vaccintation/Booster/Date Given: No - Review of Systems Constitutional: No Symptoms Eyes: No Symptoms Ears, Nose, & Throat: No Symptoms Respiratory: Cough, Dyspnea on Exertion ([place]) Cardiac: Chest Pain (Nonradiating, substernal, central chest achiness with coughing) Abdominal/Gastrointestinal: No Symptoms Genitourinary Symptoms: No Symptoms Musculoskeletal: No Symptoms Skin: No Symptoms Neurological: No Symptoms Psychological: No Symptoms Endocrine: No Symptoms Hematologic/Lymphatic: No Symptoms Immunological/Allergic: No Symptoms All Other Systems: Reviewed and Negative - Past Medical History Pertinent Past Medical History: Yes Neurological History: No Pertinent History ENT History: Glaucoma Cardiac History: No Pertinent History Respiratory History: No Pertinent History Endocrine Medical History: No Pertinent History Musculoskeletal History: Arthritis GI Medical History: No Pertinent History History: No Pertinent History Psycho-Social History: No Pertinent History Female Reproductive Disorders: No Pertinent History Other Medical History: alpha 1 - Past Surgical History Past Surgical History: Yes Musculoskeletal: Orthopedic Surgery Other Surgical History: right knee surgery - Social History Drug Use: none - Nursing Vital Signs Nursing Vital Signs: Initial Vital Signs Temperature 97 F 03/09/25 07:52 Pulse Rate 83 03/09/25 07:52 Respiratory Rate 20 03/09/25 07:52 Blood Pressure 150/69 03/09/25 07:52 O2 Sat by Pulse Oximetry 97 03/09/25 07:52 Pain Scale Pain Intensity 8 - Physical Exam General Appearance: mild distress, alert, anxiety, obese Eye Exam: PERRL/EOMI, eyes nml inspection Ears, Nose, Throat Exam: normal ENT inspection, moist mucous membranes Neck Exam: normal inspection, non-tender, supple, full range of motion Respiratory Exam: respiratory distress (Mild), airway intact, rhonchi (Mild bilateral) Cardiovascular Exam: regular rate/rhythm, normal heart sounds, normal peripheral pulses Gastrointestinal/Abdomen Exam: soft, normal bowel sounds, No tenderness Pelvic Exam: not done Rectal Exam: not done Back Exam: normal inspection, normal range of motion, No CVA tenderness, No vertebral tenderness Extremity Exam: normal inspection, normal range of motion, pelvis stable Neurologic Exam: alert, oriented x 3, cooperative, 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 QTc is 411) Ordered Tests: Active Orders 24 hr Category Date Time Status EKG-ER Only STAT Care 03/09/25 08:21 Completed IV Insertion STAT Care 03/09/25 08:21 Active Pulse Oximetry (ED) STAT Care 03/09/25 08:21 Active CHEST 1 VIEW (PORTABLE) Stat Exams 03/09/25 08:21 Completed BLOOD CULTURE Stat Lab 03/09/25 08:40 Received CBC W DIFF Stat Lab 03/09/25 08:20 Completed CMP Stat Lab 03/09/25 08:20 Completed CULTURE,SPUTUM Stat Lab 03/09/25 08:21 Received D-DIMER QUANTITATIVE Stat Lab 03/09/25 08:20 Completed Lactic Acid Stat Lab 03/09/25 08:31 Completed MAGNESIUM Stat Lab 03/09/25 08:20 Completed NT PRO BNPII Stat Lab 03/09/25 08:20 Completed TROPONIN Q4H Lab 03/09/25 08:20 Completed TROPONIN Q4H Lab 03/09/25 12:30 Ordered TROPONIN Q4H Lab 03/09/25 16:30 Ordered Medication Summary Discontinued Medications Generic Name Dose Route Start Last Admin Trade Name Freq PRN Reason Stop Dose Admin Aspirin 324 mg 12/03/25 08:49 03/09/25 08:56 Aspirin 81 Mg Tab.Chew PO 03/09/25 08:50 324 mg STAT ONE Administration Lab/Rad Data: Laboratory Result Diagrams 03/09/25 08:20 03/09/25 08:20 Laboratory Results 03/09/25 03/09/25 03/09/25 Range/Units 08:31 08:29 08:20 WBC (3.98-10.04) x10^3/uL RBC (3.93-5.22) x10^6/uL Hgb (11.2-15.7) g/dL Hct (34.1-44.9) % MCV (79.4-94.8) fL MCH (25.6-32.2) pg MCHC (32.2-35.5) g/dL RDW (11.7-14.4) % Plt Count (182-369) x10^3/uL MPV (9.4-12.3) fL Gran % (34.0-71.1) % Immature Gran % (Auto) (0.001-0.429) % Nucleat RBC Rel Count (0.00-0.2) % Eos # (Auto) (0.04-0.36) x10^3/uL Immature Gran # (Auto) (0.001-0.031) x10^3u/L Absolute Lymphs (auto) (1.18-3.74) x10^3/uL Absolute Monos (auto) (0.24-0.86) x10^3/uL Absolute Nucleated RBC (0.00-0.012) x10^3u/L Lymphocytes % (19.3-51.7) % Monocytes % (4.7-12.5) % Eosinophils % (0.7-5.8) % Basophils % (0.1-1.2) % Absolute Granulocytes (1.56-6.13) x10^3/uL Basophils # (0.01-0.08) x10^3/uL D-Dimer (0.0-0.50) mg/L Sodium (135-145) mmol/L Potassium (3.5-5.1) mmol/L Chloride (98-107) mmol/L Carbon Dioxide (22-30) mmol/L Anion Gap (5-15) MEQ/L BUN (7-17) mg/dL Creatinine (0.52-1.04) mg/dL Estimated GFR ML/MIN Glucose (74-106) mg/dL Lactic Acid 0.5 (0.4-2.0) Calcium (8.4-10.2) mg/dL Magnesium (1.6-2.3) mg/dL Total Bilirubin (0.2-1.3) mg/dL AST (14-36) U/L ALT (0-35) U/L Alkaline Phosphatase (38-126) U/L Troponin I < 0.012 (0.000-0.033) ng/mL NT-Pro-B Natriuret Pep (<300) pg/mL Serum Total Protein (6.3-8.2) g/dL Albumin (3.5-5.0) g/dL Influenza Type A Ag NEGATIVE (NEGATIVE) Influenza Type B Ag NEGATIVE (NEGATIVE) RSV (PCR) NEGATIVE (NEGATIVE) SARS-CoV-2 (PCR) NEGATIVE (NEGATIVE) 03/09/25 03/09/25 03/09/25 Range/Units 08:20 08:20 08:20 WBC 6.3 (3.98-10.04) x10^3/uL RBC 4.10 (3.93-5.22) x10^6/uL Hgb 12.0 (11.2-15.7) g/dL Hct 39.2 (34.1-44.9) % MCV 95.6 H (79.4-94.8) fL MCH 29.3 (25.6-32.2) pg MCHC 30.6 L (32.2-35.5) g/dL RDW 14.3 (11.7-14.4) % Plt Count 121 L (182-369) x10^3/uL MPV 11.9 (9.4-12.3) fL Gran % 77.1 H (34.0-71.1) % Immature Gran % (Auto) 0.3 (0.001-0.429) % Nucleat RBC Rel Count 0.0 (0.00-0.2) % Eos # (Auto) 0.02 L (0.04-0.36) x10^3/uL Immature Gran # (Auto) 0.02 (0.001-0.031) x10^3u/L Absolute Lymphs (auto) 0.81 L (1.18-3.74) x10^3/uL Absolute Monos (auto) 0.57 (0.24-0.86) x10^3/uL Absolute Nucleated RBC 0.00 (0.00-0.012) x10^3u/L Lymphocytes % 12.8 L (19.3-51.7) % Monocytes % 9.0 (4.7-12.5) % Eosinophils % 0.3 L (0.7-5.8) % Basophils % 0.5 (0.1-1.2) % Absolute Granulocytes 4.88 (1.56-6.13) x10^3/uL Basophils # 0.03 (0.01-0.08) x10^3/uL D-Dimer 0.29 (0.0-0.50) mg/L Sodium 137 (135-145) mmol/L Potassium 3.8 (3.5-5.1) mmol/L Chloride 106 (98-107) mmol/L Carbon Dioxide 21 L (22-30) mmol/L Anion Gap 14.2 (5-15) MEQ/L BUN 13 (7-17) mg/dL Creatinine 0.60 (0.52-1.04) mg/dL Estimated GFR 99.6 ML/MIN Glucose 90 (74-106) mg/dL Lactic Acid (0.4-2.0) Calcium 9.4 (8.4-10.2) mg/dL Magnesium 2.2 (1.6-2.3) mg/dL Total Bilirubin 0.60 (0.2-1.3) mg/dL AST 30 (14-36) U/L ALT 30 (0-35) U/L Alkaline Phosphatase 124 (38-126) U/L Troponin I (0.000-0.033) ng/mL NT-Pro-B Natriuret Pep 78.8 (<300) pg/mL Serum Total Protein 7.0 (6.3-8.2) g/dL Albumin 4.2 (3.5-5.0) g/dL Influenza Type A Ag (NEGATIVE) Influenza Type B Ag (NEGATIVE) RSV (PCR) (NEGATIVE) SARS-CoV-2 (PCR) (NEGATIVE) - Progress Progress: improved, re-examined Air Movement: fair Progress Note: 03/09/25 08:31 My medical decision making and the assignment of at least moderate complexity of this patient's medical issue today is based on review of the patient's past medical history, reviewed patient's medication list, reviewed patient drug allergy list, history physicals and physical findings on examination. The workup in this patient includes RT evaluation and providing nebulizer treatment, CBC, CMP, lactic acid level, procalcitonin level, BNP, D-dimer level, troponin level, chest x-ray, twelve-lead EKG and viral swabs. Differential diagnosis includes but is not limited to viral pneumonia, bacterial pneumonia, myocardial infarction, congestive heart failure, COPD exacerbation, electrolyte abnormality, arrhythmia, hypoxia 03/09/25 09:49 The preliminary chest x-ray report was interpreted by me. I see no acute cardiopulmonary process. 03/09/25 09:50 The final chest x-ray report was interpreted by the radiologist. The impression states minimal left costovertebral angle atelectasis/scarring. Remaining lungs are clear. No acute findings. 03/09/25 09:51 I interpreted the patient's laboratory data results. Based on the laboratory data results, there are no acute, emergent medical findings. 03/09/25 09:58 I had a long discussion with this patient regarding placing her in observation versus treating her at home. I feel that she is stable enough to manage her care at home. However, I offered her placement in the hospital for observation. She prefers to be discharged to home. I reviewed the workup results with her. Her heart rate is 80 bpm, her oxygen saturation level is 97% on her typical 2 L and her systolic blood pressure is 138. She is in no distress. She does not want any cough suppressant medication. We will provide her with a intravenous dose of Rocephin here in the emergency department and then send additional antibiotics to her pharmacy. She prefers to manage herself at home with home O2 via nasal cannula, nebulizer treatments every 4 hours while awake and oral antibiotics and her other medications. Blood Culture(s) Obtained: Yes Antibiotics given: Yes Counseled pt/family regarding: lab results, diagnosis, need for follow-up, rad results Medical Desision Making - Diagnostic Testing Diagnostic test were ordered, analyzed, and reviewed by me: Yes Radiological Interpretation: Interpreted by me, Reviewed by me, Teleradiologist Report - Risk of complications Low Risk: Low risk of morbidity from additional dx testing or treatment The pt has a mod risk of morbidity or mortality based on: Need for prescription drug management - Departure Departure Disposition: Home Clinical Impression: COPD exacerbation Condition: Stable Critical Care Time: No Referrals: WILLY SNOWDEN [Primary Care Provider, [facility]] - Follow up/PCP as directed Instructions: Chronic Obstructive Pulmonary Disease Additional Instructions: Drink plenty of fluids. Continue your medications as prescribed. Wear your oxygen at 2 L via nasal cannula for the next 4 to 5 days. Use your nebulizer treatments every 4 hours while awake. Return to the emergency department if your symptoms worsen. Call your primary care provider today, 03/09/2025, to make arrangements for follow-up appointment to be seen in the next 5 to 7 days. Prescriptions: Levofloxacin [Levaquin 500 MG Tablet] 500 mg PO DAILY #7 tablet
[2025-03-09 08:10] VITALS: TEMP 97
--- NOTE | 2025-03-09 08:43 | XRAY ---
Indication: Productive cough. Congestion. Comparison: May 31, 2024 Portable chest again hyperinflated with new minimal left costophrenic angle subsegmental atelectasis/scarring. Remaining lungs clear. Heart not enlarged again with left Port-A-Cath. Bony thorax intact again with osteopenia and degenerative changes. No acute findings.
[2025-03-09 08:49] LABS: BASOPHIL % 0.5 % (0.1-1.2); Basophil (Absolute #) 0.03 x10^3/uL (0.01-0.08); Eosinophil (Absolute #) 0.02 x10^3/uL (0.04-0.36); Hematocrit 39.2 % (34.1-44.9); Hemoglobin 12.0 g/dL (11.2-15.7); IMMATURE GRAN # 0.02 x10^3u/L (0.001-0.031); IMMATURE GRAN % 0.3 % (0.001-0.429); Lymphocyte (Absolute #) 0.81 x10^3/uL (1.18-3.74); Mean Corpuscular Hemoglobin 29.3 pg (25.6-32.2); Mean Corpuscular Hgb Concent. 30.6 g/dL (32.2-35.5); Monocyte (Absolute #) 0.57 x10^3/uL (0.24-0.86); NUCLEATED RBC # 0.00 x10^3u/L (0.00-0.012); NUCLEATED RBC % 0.0 % (0.00-0.2); Platelet Count 121 x10^3/uL (182-369); Red Blood Count 4.10 x10^6/uL (3.93-5.22); White Blood Count 6.3 x10^3/uL (3.98-10.04)
[2025-03-09] MEDS: BABY ASPIRIN 81 MG CHEW PO ONE (08:56)
[2025-03-09 09:09] LABS: Calcium 9.4 mg/dL (8.4-10.2); Carbon Dioxide 21.0 mmol/L (22-30); Creatinine 1 0.6 mg/dL (0.52-1.04); EST GLOMERULAR FILTRATION RATE 99.6 ML/MIN; Glucose 90.0 mg/dL (74-106); NT PRO BNPII 78.8 pg/mL (<300); Potassium 3.8 mmol/L (3.5-5.1); SGOT/AST 30.0 U/L (14-36); SGPT/ALT 30.0 U/L (0-35); Total Protein 7.0 g/dL (6.3-8.2)
[2025-03-09 09:27] LABS: INFLUENZA A NEGATIVE (NEGATIVE); INFLUENZA B NEGATIVE (NEGATIVE); RESPIRATORY SYNCTIAL VIRUS NEGATIVE (NEGATIVE); SARS-CoV-2 Xpert Express NEGATIVE (NEGATIVE)
[2025-03-09 09:51] VITALS: O2SAT 97
[2025-03-09] MEDS ORDERED: ROCEPHIN 1 GM / 100 ML NaCl 1 GM/100 ML IVPB IV ONE (10:02)
[2025-03-09] MEDS: ROCEPHIN 1 GM / 100 ML NaCl 1 GM/100 ML IVPB IV ONE (10:04)
[2025-03-09 10:56] VITALS: BP 156/81; PULSE 82; RESP 18
== END 2025-03-09 10:59 | disposition home or self-care (01) ==
LOC: ED 07:51
DX: J44.1 Chronic obstructive pulmonary disease with (acute) exacerbation (principal); R07.9 Chest pain, unspecified; R06.02 Shortness of breath; Z79.899 Other long term (current) drug therapy